=== PATIENT | male | born 1965 | race Caucasian/White ===

== ENCOUNTER 2018-11-11 07:27 | Outpatient (CLI) | payer BC ==
[~2018-11-11] VITALS: Ht 180.3 cm; Wt 81.8 kg
[~2018-11-11 07:27] MED LIST: CARDI-OMEGA1000 MG PO; VOLTAREN 75 DR75 MG PO
[2018-11-11] MEDS ORDERED: COZAAR100 MG PO (08:17)
[2018-11-11] MEDS ORDERED: PROTONIX 40MG T40 MG PO (08:18)
[2018-11-11 08:25] LABS: HEMOGLOBIN 13.9 g/dl (13.5-18.0); MEAN CELL VOLUME 91 fl (80.0-100.0); MEAN CORPUSCULAR HEMOGLOBIN 31 pg (27.0-31.0); MEAN CORPUSCULAR HGB CONC 34 g/dl (33.0-37.0); MEAN PLATELET VOLUME 10.1 fl (7.4-10.4); PLATELET COUNT 174 K/mm3 (130-400); RED BLOOD COUNT 4.53 M/mm3 (4.20-5.60); REDCELL DISTRIBUTION WIDTH-CV 12.6 % (11.5-14.5)
[2018-11-11 08:33] LABS: INR 1.1 (0.8-3.0); PROTHROMBIN TIME 12.6 SECONDS (9.7-12.8)
[2018-11-11 08:34] VITALS: BP 117/70; PULSE 53; TEMP 97.7
[2018-11-11 08:55] LABS: CALCIUM 9.2 mg/dL (8.4-10.2); CREATININE, serum 1.15 (0.66-1.25); POTASSIUM 4.3 mmol/L (3.4-5.0)
[2018-11-11 09:33] VITALS: BP 112/72; PULSE 51
[2018-11-11 09:50] VITALS: BP 115/73; PULSE 48
[2018-11-11 10:05] VITALS: BP 114/71; PULSE 46
[2018-11-11 10:25] VITALS: BP 115/73; PULSE 47
[2018-11-11 10:50] VITALS: BP 101/55; PULSE 50
--- NOTE | 2018-11-11 11:00 | NUR ---
Discharge instructions given to pt.Pt verbalizes understanding.INT removed,catheter tip intact.Pt escorted out by thisnurse.
== END 2018-11-11 12:18 | disposition home or self-care (01) ==
LOC: COL.RAD 07:27
PROVIDERS: Internal Medicine Cardiovascular Disease
DX: I34.0 Nonrheumatic mitral (valve) insufficiency (principal); I34.1 Nonrheumatic mitral (valve) prolapse; I11.9 Hypertensive heart disease without heart failure
CPT/HCPCS: J2704; J7120

== ENCOUNTER 2019-06-23 15:37 | Outpatient (RCR) | payer BC ==
[~2019-06-23 15:37] MED LIST changes: +COZAAR100 MG PO; +PROTONIX 40MG T40 MG PO
== END 2019-06-25 12:01 | disposition home or self-care (01) ==
LOC: COL.CR 15:37
DX: Z48.812 Encounter for surgical aftercare following surgery on the circulatory system (principal); I34.0 Nonrheumatic mitral (valve) insufficiency